=== PATIENT | male | born 1990 | race African-American/Black ===

== ENCOUNTER 2016-09-16 15:08 | Emergency (ER) | payer MEDICAID, OTHER ==
[~2016-09-16] VITALS: Ht 172.7 cm; Wt 85.3 kg
[2016-09-16 17:19] VITALS: BP 124/77
[2016-09-16] MEDS ORDERED: HYDROmorphone HCL 2 MG/ML VL IM ONE (17:45)
[2016-09-16] MEDS ORDERED: ONDANSETRON HCL 4 MG/2 ML VIAL IM ONE (17:45)
== END 2016-09-16 18:09 | disposition home or self-care (01) ==
LOC: ER 15:19
DX: J32.9 Chronic sinusitis, unspecified (principal)
CPT/HCPCS: 96372; 99284; J1170; J2405